=== PATIENT | male | born 1990 | race Caucasian/White ===

== ENCOUNTER 2019-12-03 19:00 | Emergency (ER) | payer OTHER ==
[2019-12-03] MEDS ORDERED: Ketorolac 60 MG/2 ML SDV IM ONE (19:47)
--- NOTE | 2019-12-03 19:50 | EDM.PDOC ---
ED HPI GENERAL MEDICAL PROBLEM - General Chief Complaint: General Stated Complaint: POSS HEMROID Time Seen by Provider: 12/03/19 19:28 Source of Information: Reports: Patient, RN Notes Reviewed - History of Present Illness INITIAL COMMENTS - FREE TEXT/NARRATIVE: 29-year-old male comes in with rectal discomfort secondary to hemorrhoids, this first started about 10 to 14 days ago but is become much worse over the past 2 or 3 days. There is been no bleeding. He has been constipated, agrees that he does not drink enough water. 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 No abdominal pain nausea or vomiting. No fever or chills. Rectal Pain Score (Numeric/FACES): 10 - Related Data Allergies Allergy/AdvReac Type Severity Reaction Status Date / Time No Known Allergies Allergy Verified 12/03/19 19:25 Home Meds: Home Meds valACYclovir HCl [Valtrex] 500 mg PO TID 12/03/19 [History] Past Medical History - Infectious Disease History Infectious Disease History: Reports: Shingles Social & Family History - Tobacco Use Smoking Status *Q: Current Every Day Smoker Years of Tobacco use: 9 Packs/Tins Daily: 0.1 - Caffeine Use Caffeine Use: Reports: Coffee - Recreational Drug Use Recreational Drug Use: No ED ROS GENERAL - Review of Systems Review Of Systems: See Below Constitutional: Denies: Fever, Chills HEENT: Reports: No Symptoms Respiratory: Denies: Shortness of Breath GI/Abdominal: Reports: Other (Perirectal pain). Denies: Abdominal Pain, Nausea , Vomiting Musculoskeletal: Reports: No Symptoms Skin: Reports: No Symptoms Neurological: Reports: No Symptoms ED EXAM, GENERAL - Physical Exam Exam: See Below General Appearance: Alert, Mild Distress Head: Atraumatic Neck: Supple Respiratory/Chest: No Respiratory Distress Rectal (Males) Exam: Hemorrhoids (Moderately swollen external, no active bleeding moderately tender), Other (No other soft tissue tenderness, swelling or erythema to suggest perirectal abscess or other perirectal problems at this time) Extremities: Normal Inspection Neurological: Alert, No Motor/Sensory Deficits Skin Exam: Warm, Dry, No Rash Course - Vital Signs Last Recorded V/S: Last Vital Signs Temp 99.1 F 12/03/19 19:24 Pulse 62 12/03/19 19:24 Resp 20 12/03/19 19:24 BP 135/83 12/03/19 19:24 Pulse Ox 100 12/03/19 19:24 - Orders/Labs/Meds Meds: Medications Discontinued Medications Generic Name Dose Route Start Last Admin Trade Name Lamar PRN Reason Stop Dose Admin Ketorolac Tromethamine 60 mg 12/03/19 19:47 12/03/19 20:03 Toradol IM 12/03/19 19:48 60 mg ONETIME ONE Administration Departure - Departure Time of Disposition: 19:55 Disposition: Home, Self-Care 01 Condition: Fair Clinical Impression: Hemorrhoids - Discharge Information Instructions: Hemorrhoids, [id number] Referrals: Mason Rockwell Jr, MD [Primary Care Provider] - Forms: ED Department Discharge Additional Instructions: preparation H suppositories 3 times daily internal and than also apply externally to all areas of external swelling. With time this will reduce the swelling, pain and inflamation. Stool softner such as colace available OTC twice daily to help avoid constipation. Drink plenty of water. Warm soaks in a tub twice daily as best you can, 3 to 4 times daily when not working. Follow up with Dr Monzon at our [facility] [place] [facility], call [phone] for appointment as needed if symptoms not resolving as expected. You can also alternate tylenol and ibuprofen as needed for pain. Sepsis Event Note - Evaluation Sepsis Screening Result: No Definite Risk - Focused Exam Vital Signs: Vital Signs Temp Pulse Resp BP Pulse Ox 12/03/19 19:24 99.1 F 62 20 135/83 100 Date Exam was Performed: 12/04/19 Time Exam was Performed: 00:51
== END 2019-12-03 20:07 | disposition home or self-care (01) ==
LOC: JD.ED 19:00
DX: K64.9 Unspecified hemorrhoids (principal); F17.210 Nicotine dependence, cigarettes, uncomplicated
CPT/HCPCS: 96372; 99283; J1885